=== PATIENT | female | born 1945 | race Caucasian/White ===

== ENCOUNTER 2021-08-18 16:28 | Emergency (ER) | payer MEDICARE ==
[~2021-08-18] VITALS: Ht 160 cm; Wt 72.6 kg
[~2021-08-18 16:28] MED LIST: ASPIR 8181 MG PO; LISINOPRIL10 MG PO; ZOCOR20 MG PO
[2021-08-18 17:23] LABS: ABSOLUTE BASOPHILS 0.1 thou/uL (0.0-0.2); ABSOLUTE EOSINOPHILS 0.1 thou/uL (0.0-0.7); ABSOLUTE LYMPHOCYTES 1.2 thou/uL (0.8-5.3); ABSOLUTE MONOCYTES 0.6 thou/uL (0.0-1.2); ABSOLUTE NEUTROPHILS 5.7 thou/uL (1.6-8.1); MCH 29.4 pg (26.0-34.0); MCHC 32.9 g/dL (28.0-37.0); WBC 7.7 thou/uL (4.0-11.0)
[2021-08-18 17:25] LABS: EOSINOPHILS 1.2 %; HEMATOCRIT 38.9 % (37.0-47.0); HEMOGLOBIN 12.8 gm/dL (12.0-15.0); LYMPHOCYTES 16.2 %; MCV 89.4 fL (80.0-100.0); MONOCYTES 7.7 %; MPV 8.5 fl. (7.2-11.1); NUCLEATED RBCS 0 /100WBC; PLATELET COUNT* 197 thou/uL (150-400); POLYS 73.9 %; RBC 4.36 mil/uL (4.20-5.00); RDW-CV 13.8 % (10.5-14.5)
[2021-08-18 17:49] LABS: CALCIUM 9.4 mg/dL (8.5-10.1); CREATININE 0.9 mg/dL (0.6-1.3); POTASSIUM 4.1 mmol/L (3.5-5.1)
[2021-08-18 17:59] LABS: ALBUMIN 3.5 g/dL (3.4-5.0); TOTAL BILIRUBIN 0.4 mg/dL (<0.1-1.0); TOTAL PROTEIN 6.6 g/dL (6.4-8.2)
[2021-08-18 18:10] VITALS: BP 165/78
--- NOTE | 2021-08-19 10:18 | EKG ---
[place] [address] ELECTROCARDIOGRAM REPORT Name: BANDAJENNIFER Nelson Room: [facility]#: [id number] Admission: 08/18/21 Attend Phys: Discharge: 08/18/21 Date of : 43 Date of Service: 08/18/21 1649 Report #: [id number] THIS REPORT FOR: //name// [facility] ED Test Date: 2021-08-18 Test Time: 16:49:06 Pat Name: JENNIFER BANDA Department: Room: Gender: Manager Integrity: : 1945 Requested By: Josue Leggett Order Number: [id number] MD: Bret Giraldo Measurements Intervals Dresher Rate: 79 P: 52 NJ: 142 QRS: 25 QRSD: 89 T: 48 QT: 367 QTc: 421 Interpretive Statements Sinus rhythm Compared to ECG 03/29/2018 13:31:20 No significant changes Electronically Signed On 08-19-2021 10:18:45 CHILD AND FAMILY SERVICES SPECIALIST by Bret Giraldo [email or web address] <ELECTRONICALLY SIGNED> By: Bret Giraldo MD, [facility] 08/19/21 1018 48 Bret Giraldo MD, FAC /EPI
== END 2021-08-18 18:10 | disposition home or self-care (01) ==
LOC: M.ERS 16:28
PROVIDERS: Family Medicine
DX: R42 Dizziness and giddiness (principal); I10 Essential (primary) hypertension; E78.5 Hyperlipidemia, unspecified; Z79.899 Other long term (current) drug therapy